=== PATIENT | female | born 1995 | race Caucasian/White ===

== ENCOUNTER 2017-09-23 16:09 | Emergency (ER) | payer OTHER ==
[2017-09-23] MEDS ORDERED: NORMAL SALINE 1000 ML 1,000 ML IV ONE (16:52)
--- NOTE | 2017-09-23 16:55 | ER Document Report ---
ED Medical Screen (RME) - General Chief Complaint: Headache >24 hrs old Stated Complaint: DIFFICULTY SEEING Time Seen by Provider: 09/23/17 16:51 Notes: 22 years old female presents today with 3-day history of blisters appearing over the upper lip as well as lower lip, the left jaw, headache, neck pain and neck stiffness, fever and chills. Also had nausea but no vomiting. Denies any sore throat cough chest pain shortness of breath. Denies any dysuria frequency urgency. Denies being . She has stress-induced herpes simplex 1 with course of breaking out periodically but not recent past. Currently undergoing a lot of stress. On examination appeared to be anxious, herpes blisters were noted in the left upper lip and left lower lip. Pharynx was clear years with clear normal tympanic membrane. Neck stiffness noted particularly on flexion. Lungs clear cardiovascular system normal S1-S2. Abdomen soft. TRAVEL OUTSIDE OF THE [place] IN LAST 30 DAYS: No - Related Data Allergies/Adverse Reactions: No Known Allergies Allergy (Unverified 09/23/17 16:21) Past Medical History - Social History Chew tobacco use (# tins/day): No Frequency of alcohol use: None Drug Abuse: None - Past Medical History Cardiac Medical History: Reports: Hx Hypertension Pulmonary Medical History: Reports: Hx Asthma Renal/ Medical History: Denies: Hx Peritoneal Dialysis Physical Exam - Vital signs Vitals: Temp Pulse Resp BP Pulse Ox 99.2 F 96 20 127/93 H 99 09/23/17 16:23 09/23/17 16:23 09/23/17 16:23 09/23/17 16:23 09/23/17 16:23 Course - Vital Signs Vital signs: Temp Pulse Resp BP Pulse Ox 99.2 F 96 20 127/93 H 99 09/23/17 16:23 09/23/17 16:23 09/23/17 16:23 09/23/17 16:23 09/23/17 16:23
[2017-09-23 17:58] LABS: ABSOLUTE LYMPHOCYTES (AUTO) 1.4 10^3/uL (0.5-4.7); ABSOLUTE MONOCYTES (AUTO) 0.5 10^3/uL (0.1-1.4); ABSOLUTE NEUT (AUTO) 6.3 10^3/uL (1.7-8.2); BASOPHILS % (AUTO) 0.3 % (0-2); EOSINOPHILS % (AUTO) 0.2 % (0-6); HEMATOCRIT 37.5 % (36.0-47.0); HEMOGLOBIN 12.3 g/dL (12.0-15.5); LYMPHOCYTES % (AUTO) 17.1 % (13-45); MEAN CORPUSCULAR HEMOGLOBIN 26.7 pg (27.0-33.4); MEAN CORPUSCULAR HGB CONC 32.8 g/dL (32.0-36.0); MEAN CORPUSCULAR VOLUME 82 fl (80-97); MONOCYTES % (AUTO) 6.3 % (3-13); PLATELET COUNT 355 10^3/uL (150-450); RED BLOOD COUNT 4.59 10^6/uL (3.72-5.28); RED CELL DISTRIBUTION WIDTH 14.5 % (11.5-14.0); SEGMENTED NEUTROPHILS % (AUTO) 76.1 % (42-78); TOTAL CELLS COUNTED % (AUTO) 100 %; WHITE BLOOD COUNT 8.2 10^3/uL (4.0-10.5)
[2017-09-23 18:04] LABS: APPEARANCE,URINE CLEAR; BILIRUBIN,URINE NEGATIVE (NEGATIVE); COLOR,URINE YELLOW; GLUCOSE, URINE NEGATIVE (NEGATIVE); KETONES,URINE 80 mg/dL (NEGATIVE); LEUKOCYTE ESTERASE,URINE NEGATIVE (NEGATIVE); NITRITE,URINE NEGATIVE (NEGATIVE); PROTEIN,URINE NEGATIVE (NEGATIVE); URINE SPECIFIC GRAVITY 1.015
[2017-09-23] MEDS ORDERED: ONDANSETRON 4 MG TAB.RAPDIS PO ONE (18:20)
[2017-09-23 18:23] LABS: ALANINE AMINOTRANSFERASE 47 U/L (9-52); ALBUMIN 4.8 g/dL (3.5-5.0); ALKALINE PHOSPHATASE 110 U/L (38-126); ANION GAP 15 (5-19); ASPARTATE AMINO TRANSFERASE 47 U/L (14-36); BILIRUBIN,DIRECT 0.3 mg/dL (0.0-0.4); BLOOD UREA NITROGEN 7 mg/dL (7-20); C-REACTIVE PROTEIN 42.9 mg/L (<10.0); CALCIUM 9.2 mg/dL (8.4-10.2); CARBON DIOXIDE 27 mmol/L (22-30); CHLORIDE 99 mmol/L (98-107); GLUCOSE 93 mg/dL (75-110); POTASSIUM 3.7 mmol/L (3.6-5.0); SODIUM 141.2 mmol/L (137-145); TOTAL PROTEIN 8.9 g/dL (6.3-8.2)
[2017-09-23 18:52] LABS: ERYTHROCYTE SEDIMENTATION RATE 35 mm/hr (0-20)
[2017-09-23] MEDS ORDERED: METOCLOPRAMIDE HCL INJ/PF 10 MG/2 ML SDV IV ONE (18:53)
[2017-09-23] MEDS ORDERED: KETOROLAC TROMETHAMINE INJ/PF 30 MG/1 ML SDV IV ONE (18:54)
[2017-09-23] MEDS ORDERED: DIPHENHYDRAMINE HCL 50 MG/ML VIAL IV ONE (18:54)
--- NOTE | 2017-09-23 20:52 | ER Document Report ---
ED Headache - General Chief Complaint: Headache >24 hrs old Stated Complaint: DIFFICULTY SEEING Time Seen by Provider: 09/23/17 16:51 TRAVEL OUTSIDE OF THE [place] IN LAST 30 DAYS: No - HPI Patient complains to provider of: Headache, Other - This 22-year-old female presents for evaluation of headache as well as runny nose and episodes of emesis over the last 2 days at home for which she has tried to take BC powder as well as Coca-Cola which in the past has helped with her normal migraines. She denies any episodes of diarrhea or constipation, she denies any chest pain or shortness of breath she does endorse fatigue denies any rashes complains of a headache which is throbbing in quality across the front of her head as well as what appears to be cold sores that has bothered up over the last day. She has had a history of cold sores in the past but this is worse than usual. She says that this is different than her typical migraine. - Related Data Allergies/Adverse Reactions: No Known Allergies Allergy (Unverified 09/23/17 16:21) Past Medical History - General Information source: Patient, Relative - Social History Smoking Status: Never Smoker Chew tobacco use (# tins/day): No Frequency of alcohol use: None Drug Abuse: None Family History: None Patient has suicidal ideation: No Patient has homicidal ideation: No - Past Medical History Cardiac Medical History: Reports: Hx Hypertension Pulmonary Medical History: Reports: Hx Asthma Renal/ Medical History: Denies: Hx Peritoneal Dialysis Review of Systems - Review of Systems -: Yes All other systems reviewed and negative Physical Exam - Vital signs Vitals: Temp Pulse Resp BP Pulse Ox 99.2 F 96 20 127/93 H 99 09/23/17 16:23 09/23/17 16:23 09/23/17 16:23 09/23/17 16:23 09/23/17 16:23 - General General appearance: Anxious In distress: Mild - HEENT Head: Normocephalic Eyes: Normal Conjunctiva: Normal Mouth/Lips: Lesions - Respiratory Respiratory status: No respiratory distress Chest status: Nontender Breath sounds: Normal - Cardiovascular Rhythm: Regular Heart sounds: Normal auscultation Murmur: No - Abdominal Inspection: Normal Distension: No distension - Back Back: Normal - Extremities General upper extremity: Normal inspection General lower extremity: Normal inspection - Neurological Neuro grossly intact: Yes Course - Re-evaluation Re-evalutation: 09/24/17 04:29 This 22-year-old female presents from triage having been evaluated for her headache. Currently she has had a history of migraines and a worse than usual episode in conjunction with what appears to be a viral URI causing a flare of her cold sores. She has tried normal remedies for her without any improvement in her symptoms. On examination she is photophobic and does appear somewhat uncomfortable. Spoke with the patient at length about the potential risks and benefits of further evaluation other than the blood tests which she has received, current plan is for this patient to undergo treatment for her migraine and reassessment. Following administration of Compazine and Toradol and Benadryl patient did receive some relief of her headache, she was able to drink and eat without any episodes of emesis. I offered the patient a lumbar puncture she did continue to have some residual headache she was adamant that she did not want to pursue lumbar puncture at this time. As she does not wish to pursue lumbar puncture at this time believe it is important that patient return for any worsening, I did explain that we have not ruled out meningitis. It is something I am concerned that she may have. I spoke to her about other potential causes of headaches and the importance of return in case of any worsening. She agreed at discharge she was in the care of her and appeared somewhat improved. - Vital Signs Vital signs: Temp Pulse Resp BP Pulse Ox 99.2 F 96 16 116/60 99 09/23/17 21:20 09/23/17 16:23 09/23/17 21:20 09/23/17 21:20 09/23/17 21:20 - Laboratory Result Diagrams: 09/23/17 17:20 09/23/17 17:20 Laboratory results interpreted by me: 09/23/17 09/23/17 09/23/17 17:20 17:20 17:20 MCH 26.7 L RDW 14.5 H ESR 35 H AST 47 H C-Reactive Protein 42.9 H Total Protein 8.9 H Urine Ketones 80 H Urine Urobilinogen 4.0 H Discharge - Discharge Condition: Good Disposition: HOME, SELF-CARE Instructions: Headache ([facility]), Nausea or Vomiting, Nonspecific ([facility]) Additional Instructions: You were seen today in the emergency room for your headache and difficulty eating and drinking. You had evaluation including physical exam as well as blood work. No obvious cause was identified for your headache, you were offered a lumbar puncture you said that you do not want one at this time, if you return because her headache continues we would continue to offer this. If you have worsening headache inability to eat or drink or you feel worse please return as it may be a worsening of your condition and it may be a more serious condition. Prescriptions: Butalbital/Aspirin/Caffeine [Fiorinal 50-325-40 mg Capsule] 1 cap PO Q4 PRN #30 cap PRN Reason: Promethazine HCl [Phenergan 25 mg Tablet] 1 - 2 tab PO Q6H PRN #15 tablet PRN Reason:
[2017-09-23 21:30] VITALS: BP 116/60
== END 2017-09-23 21:20 | disposition home or self-care (01) ==
LOC: ER 16:09
DX: G43.909 Migraine, unspecified, not intractable, without status migrainosus (principal); R11.2 Nausea with vomiting, unspecified; H53.149 Visual discomfort, unspecified; R09.89 Other specified symptoms and signs involving the circulatory and respiratory systems; R53.83 Other fatigue; I10 Essential (primary) hypertension; J45.909 Unspecified asthma, uncomplicated; K13.70 Unspecified lesions of oral mucosa
CPT/HCPCS: 99283; 96361; 96374; 36415; 85025; 85652; 81025; 86140; 80053; 81001; J1200; S0119; J1885; J2765; J7030